=== PATIENT | female | born 1975 | race Caucasian/White ===

== ENCOUNTER 2018-11-18 20:10 | Emergency (ER) | payer BC ==
[~2018-11-18] VITALS: Ht 160 cm; Wt 53.5 kg
--- NOTE | 2018-11-18 20:18 | NUR ---
Pt ambulates to ER with son from home with c/o right hand/wrist pain from electrical shock. Pt states she was plugging a cord into an outlet but did not realize there was a piece of metal in the outlet & accidentally shocked herself. Pt denies any loss of consciousness. Redness noted on palmar surface down to wrist area. Skin is intact. Sensation intact. Pt able to move all digits. Will continue to monitor.
[2018-11-18] MEDS ORDERED: HYDROCODONE/APAP 5-325MG TABLET ONE (20:43)
[2018-11-18] MEDS ORDERED: HYDROCODONE/APAP 5-325MG TABLET PO ONE (20:45)
[2018-11-18] MEDS ORDERED: TDAP DIPH,PERTUSS,TET VAC/PF 0.5 ML DISP.SYRIN IM ONE ×2 (21:00→21:10)
--- NOTE | 2018-11-18 21:28 | NUR ---
Pt appears in no apparent distress. Pain relief effective. at bedside. Pending lab results.
[2018-11-18] MEDS ORDERED: NEOMY/BACITRA/POLYMYXIN B OINT UD PACKET TP ONE ×2 (22:14→22:15)
--- NOTE | 2018-11-18 22:17 | NUR ---
Patient discharged to home in stable conditon. Written and verbal after care instructions given. Patient verbalizes understanding of instructions. Pt ambulated out of ER in steady gait w who will drive home. Pt understands directions to follow up [facility]. Pt states pain med effective. No acute distress noted. VSS.
[2018-11-18 22:19] VITALS: BP 128/86
== END 2018-11-18 22:20 | disposition home or self-care (01) ==
LOC: ER 20:10
DX: T23.101A Burn of first degree of right hand, unspecified site, initial encounter (principal); Z88.2 Allergy status to sulfonamides; W86.1XXA Exposure to industrial wiring, appliances and electrical machinery, initial encounter; Y93.89 Activity, other specified; Y92.89 Other specified places as the place of occurrence of the external cause; Y99.8 Other external cause status
CPT/HCPCS: 36415; 90715; A4663